=== PATIENT | female | born 1990 | race Hispanic/Latino ===

== ENCOUNTER 2017-12-02 10:31 | Emergency (ER) | payer SELFPAY ==
[2017-12-02 11:15] LABS: RAPID GROUP A STREP NEGATIVE (NEGATIVE)
== END 2017-12-02 11:45 | disposition home or self-care (01) ==
LOC: EDH 10:31
DX: J02.9 Acute pharyngitis, unspecified (principal); K52.9 Noninfective gastroenteritis and colitis, unspecified
CPT/HCPCS: 87804; 87880

== ENCOUNTER 2018-04-06 12:38 | Emergency (ER) | payer OTHER | END 2018-04-06 14:11 | disposition home or self-care (01) | LOC: EDH 12:38 | DX: M54.2 Cervicalgia (principal); V49.49XA Driver injured in collision with other motor vehicles in traffic accident, initial encounter; Y93.89 Activity, other specified; Y92.89 Other specified places as the place of occurrence of the external cause; Y99.8 Other external cause status ==